=== PATIENT | female | born 1940 | race Caucasian/White ===

== ENCOUNTER → 2024-06-26 | Outpatient (CLI) | payer MEDICARE, OTHER, SELFPAY ==
[2024-06-26 08:31] LABS: Basophils # (Auto) 0.1 Thou/mm3 (0.0-0.2); Basophils % (Auto) 1 % (0-2.5); Eosinophils # (Auto) 0.3 Thou/mm3 (0.0-0.5); Eosinophils % (Auto) 6 % (0-10); Hematocrit 42.8 % (36.0-46.0); Hemoglobin 14.1 g/dL (12.0-16.0); Immature Granulocytes % (Auto) 0 % (0-0); Immature Granulocytes Auto 0.01 Thou/mm3 (0.00-0.00); Lymphocytes # (Auto) 1.9 Thou/mm3 (1.0-4.8); Lymphocytes % (Auto) 34 % (10-50); Mean Corpuscular HGB Conc 32.9 g/dl (31.0-37.0); Mean Corpuscular Hemoglobin 30.8 pg (25.0-35.0); Mean Corpuscular Volume 93 fL (80-100); Monocytes # (Auto) 0.7 Thou/mm3 (0.0-0.8); Monocytes % (Auto) 12 % (0-12); Neutrophils # (Auto) 2.6 Thou/mm3 (1.8-7.7); Neutrophils % (Auto) 46 % (37-80); Nucleated Red Blood Cell % 0 /100 WBC (0); Platelet Count 184 Thou/mm3 (140-440); Red Blood Count 4.58 Miln/mm3 (4.00-5.20); White Blood Count 5.5 Thou/mm3 (3.6-11.0)
[2024-06-26 08:50] LABS: Glucose Estimated Average 111 mg/dL (80-131); Hemoglobin A1C 5.5 % Hgb (4.8-6.0)
[2024-06-26 08:53] LABS: Collection Type, Urine Clean Catch
[2024-06-26 09:15] LABS: Bacteria,Urine Rare; Bilirubin,Urine Negative (Negative); Blood,Urine Trace (Negative); Color,Urine Yellow (Lt Yel-Yel); Culture Indicated,Urine Contaminated; Glucose, Urine Negative (Negative); Hyaline Casts,Urine < 1 /hpf (0-1); Ketones,Urine Negative (Negative); Leukocyte Esterase,Urine Positive (Negative); Nitrite,Urine Negative (Negative); PH,Urine 5.5 (5.0-7.0); Protein,Urine Trace (Neg - Trace); RBC,Urine 16 /hpf (0-3); Specific Gravity,Urine 1.011 (1.001-1.035); Squamous Epithelial Cell,Urine 17 /hpf (0-5); Urobilinogen,Urine Negative mg/dL (0.0-1.0); WBC,Urine 25 /hpf (0-5)
[2024-06-26 09:32] LABS: Clarity,Urine Hazy (Clear/Hazy)
[2024-06-26 18:57] LABS: Alanine Aminotransferase 17 U/L (10-49); Albumin, Serum 4.5 gm/dL (3.4-4.8); Albumin/Globulin Ratio 1.8 (1.2-2.2); Alkaline Phosphatase 91 U/L (46-116); Anion Gap 10 (7-16); Aspartate Amino Transferase 29 U/L (0-34); BUN/Creatinine Ratio 18 Ratio (12-20); Bilirubin,Total 0.8 mg/dL (0.3-1.2); Blood Urea Nitrogen 16 mg/dL (9-23); Calcium 10.2 mg/dL (8.3-10.6); Calcium (Corrected) 10.2 mg/dL (8.5-10.1); Carbon Dioxide 28.6 mMol/L (20.0-31.0); Chloride 100 mMol/L (98-107); Creatinine (Component) 0.9 mg/dL (0.6-1.3); Free T4 (Free Thyroxine) 1.64 ng/dL (0.89-1.76); Globulin 2.5 gm/dL (2.3-3.5); Glucose 96 mg/dL (74-106); Magnesium 1.9 mg/dL (1.6-2.6); Osmolality,Calculated 278 (275-295); Potassium 3.8 mMol/L (3.4-5.1); Sodium 139 mMol/L (136-145); Uric Acid 4.8 mg/dL (3.1-7.8); eGFR > 60 See Note
[2024-06-30 07:04] LABS: Vitamin D, 25-OH, D2 <4 ng/mL; Vitamin D, 25-OH, D3 50 ng/mL; Vitamin D, 25-OH, Total 50 ng/mL (30-100)
== END | disposition home or self-care (01) ==
LOC: COPL 07:47
PROVIDERS: PCP Internal Medicine; Referring Provider Internal Medicine; Visit Provider Internal Medicine
DX: I10 Essential (primary) hypertension (principal); R73.01 Impaired fasting glucose; M85.859 Other specified disorders of bone density and structure, unspecified thigh; R53.83 Other fatigue; M10.9 Gout, unspecified; K21.9 Gastro-esophageal reflux disease without esophagitis
CPT/HCPCS: 36415; 80053; 81001; 82306; 83036; 83735; 84439; 84443; 84550; 85025

== ENCOUNTER 2024-08-10 14:08 | Emergency (ER) | payer MEDICARE, OTHER, SELFPAY ==
[2024-08-10 14:19] VITALS: BP 137/75; PULSE 105; RESP 16; TEMP 36.7; O2SAT 95; BMI 23.6
--- NOTE | 2024-08-10 15:04 | PD.EDFMALE ---
ED Female Urogenital RME/HPI General Chief complaint: Urogenital-Female Stated complaint: VAGINAL SWELLING AND SORENESS Time Seen by Provider: 08/10/24 14:26 Source: patient Arrival date/time: 08/10/24 14:08 83-year-old female with no known medical history presents to the emergency room with a chief complaint of tenderness and swelling to the right side of her vagina and dysuria x 1 week Mode of arrival: ambulatory Limitations: no limitations Related Data Home Medications ?Medication ?Instructions ?Recorded ?Confirmed amlodipine 5 mg tablet 1 tab PO QDAY 02/10/22 02/10/22 triamterene 37.5 1 tab PO QDAY 02/10/22 02/10/22 mg-hydrochlorothiazide 25 mg tablet venlafaxine 37.5 mg 1 cap PO QDAY 02/10/22 02/10/22 capsule,extended release 24 hr Previous Rx's ?Medication ?Instructions ?Recorded potassium chloride 10 mEq 10 meq PO QDAY #10 tabs 02/10/22 tablet,extended release potassium chloride 20 mEq 20 meq PO QDAY #10 tabs 12/17/22 tablet,extended release nitrofurantoin 100 mg PO Q12H 5 days #10 caps 08/10/24 monohydrate/macrocrystals 100 mg capsule (Macrobid) phenazopyridine 200 mg tablet 200 mg PO TID 6 doses #6 tabs 08/10/24 (Pyridium) Allergies Allergy/AdvReac Type Severity Reaction Status Date / Time Penicillins Allergy Severe Rash Verified 08/10/24 14:14 Review of Systems Review of Systems Systems Reviewed: All systems reviewed, normal except as documented Constitutional Constitutional: Reports system reviewed and no additional complaints, except as documented, Denies fatigue, Denies fever(s), Denies headache(s) and Denies weakness Eyes Eyes: Reports system reviewed and no additional complaints, except as documented, Denies blurry vision and Denies change in vision ENT Ears, Nose, Mouth, and Throat: Reports system reviewed and no additional complaints, except as documented, Denies otalgia, Denies headache(s), Denies nasal congestion, Denies throat swelling and Denies vertigo Cardiovascular Cardiovascular: Reports system reviewed and no additional complaints, except as documented, Denies chest pain, Denies dyspnea and Denies dyspnea on exertion Respiratory Respiratory: Reports system reviewed and no additional complaints, except as documented, Denies chest congestion, Denies cough, Denies dyspnea, Denies dyspnea on exertion and Denies wheezing Gastrointestinal Gastrointestinal: Reports system reviewed and no additional complaints, except as documented, Denies abdominal pain, Denies cramping, Denies nausea and Denies vomiting Genitourinary Genitourinary: Reports system reviewed and no additional complaints, except as documented, Reports dysuria, Reports pelvic pain, Denies vaginal discharge and Denies vaginal dryness Musculoskeletal Musculoskeletal: Reports system reviewed and no additional complaints, except as documented and Denies back pain Integumentary/Breasts Skin/Breast: Reports system reviewed and no additional complaints, except as documented and Denies wounds Neurologic Neurologic: Reports system reviewed and no additional complaints, except as documented, Denies confusion, Denies headache(s), Denies lack of coordination, Denies vertigo and Denies weakness Psychiatric Psychiatric: Reports system reviewed and no additional complaints, except as documented, Denies anxiety, Denies confusion, Denies depression, Denies paranoia, Denies suicidal ideation and Denies tactile hallucinations Endocrine Endocrine: Reports system reviewed and no additional complaints, except as documented and Denies fatigue Hematologic/Lymphatic Hematologic/Lymphatic: Reports system reviewed and no additional complaints, except as documented and Denies lymphadenopathy Allergic/Immunologic Allergic/Immunologic: Reports system reviewed and no additional complaints, except as documented, Denies throat swelling, Denies urticaria and Denies wheezing ED Exam General Limitations: Present no limitations Course Quality Measures none Orders Category Date Time Status UA, C/S IF [Urinalysis, C/S if Indicated] Stat Lab 08/10/24 14:55 Completed Vital Signs Vital signs: Vital Signs Temperature 98.0 F 08/10/24 14:19 Pulse Rate 105 H 08/10/24 14:19 Respiratory Rate 16 08/10/24 14:19 Blood Pressure 137/75 H 08/10/24 14:19 Pulse Oximetry (%) 95 08/10/24 14:19 Oxygen Delivery Method Room Air 08/10/24 14:19 O2 saturation 95% within normal limits Urogenital - Female MDM Narrative MDM Narrative:: 83-year-old female with no known medical history presents to the emergency room with a chief complaint of tenderness and swelling to the right side of her vagina and dysuria x 1 week Patient is hemodynamically stable and in no apparent distress Physical examination shows some minor swelling to the right vulva. There is no Paulina. No discharge no foul odor. Urinalysis shows a urinary tract infection. Antibiotics were sent to the patient's pharmacy patient was discharged and educated to follow-up with her primary care provider and return to the emergency room for any evidence of worsening signs or symptoms Patient data External records reviewed:: [facility] previous records Clinical information provided by:: patient Social determinants that could affect healthcare access:: none Patient has the following chronic illnesses:: No chronic illness How is presenting disease/condition affected by chronic disease/condition?: no chronic disease Evaluation data The following diagnostics were reviewed and interpreted by me:: lab results and radiology exam(s) Lab and/or radiology exams considered but not ordered:: Labs and radiology exams considered and ordered Interpretation Summary: N/A Medications / Prescriptions Medications or Prescriptions considered but not ordered:: Medication given Medication administrations:: Rx given Consultations Consultation(s) initiated? (list below): No Diagnosis Urogenital Female Differential Diagnosis: urinary tract infection, bacterial vaginosis, vaginitis, cyst of Bartholin's gland and cystitis Most likely diagnosis given after review of the tests above:: Urinary tract infection Admission Indicated Admission indicated?: not indicated Admission Request Was there a request for admission?: No Disposition Plan Disposition Plan: Discharge Discharge Attestation Discharge Attestation: The patient and all family members were given an opportunity to ask questions and understood the discharge instructions. Discharge instructions specifically effects, indications for sooner follow up or return to the emergency department, and the expected course of current diagnosis. Patient condition: Stable Discharge Plan Plan Patient Disposition: HOME (Self Care) Disposition Comment: Stable Prescriptions/Referrals Prescriptions/Med Rec: New nitrofurantoin monohyd/m-cryst [Macrobid] 100 mg capsule 100 mg PO Q12H 5 Days Qty: 10 0RF Rx Instructions: must administer with a meal/food phenazopyridine [Pyridium] 200 mg tablet 200 mg PO TID Qty: 6 0RF No Action amlodipine 5 mg tablet 1 tab PO QDAY venlafaxine 37.5 mg capsule,extended release 24hr 1 cap PO QDAY triamterene-hydrochlorothiazid 37.5-25 mg tablet 1 tab PO QDAY potassium chloride 10 mEq tablet extended release 10 meq PO QDAY Qty: 10 0RF potassium chloride 20 mEq tablet extended release 20 meq PO QDAY Qty: 10 0RF Problem List Clinical Impression: Urinary tract infection Patient/Caregiver Discharge Instructions Education Materials: ED CYSTITIS Female Adult Additional Instructions: Please follow-up with your primary care provider in the next 24 to 48 hours. Your urinalysis showed a urinary tract infection. Antibiotics are sent to your pharmacy please pick them up and take them as indicated. For any evidence of worsening signs or symptoms please return to the emergency room immediately Print Language: Czech Stand Alone Forms: [facility] Award Info., Patient Portal Info Letter PA/TOURIST CAMP ATTENDANT Supervising Physician PA/TOURIST CAMP ATTENDANT Supervising Physician: Dr. Powell
[2024-08-10 15:19] LABS: Collection Type, Urine Clean Catch
[2024-08-10 15:41] LABS: Bacteria,Urine Rare; Bilirubin,Urine Negative (Negative); Blood,Urine Trace (Negative); Color,Urine Yellow (Lt Yel-Yel); Culture Indicated,Urine Contaminated; Glucose, Urine Negative (Negative); Hyaline Casts,Urine < 1 /hpf (0-1); Ketones,Urine Negative (Negative); Leukocyte Esterase,Urine Positive (Negative); Nitrite,Urine Negative (Negative); PH,Urine 5.5 (5.0-7.0); Protein,Urine 1+ (Neg - Trace); RBC,Urine 27 /hpf (0-3); Squamous Epithelial Cell,Urine 64 /hpf (0-5); WBC,Urine 251 /hpf (0-5)
[2024-08-10 16:04] LABS: Clarity,Urine Hazy (Clear/Hazy)
== END 2024-08-10 17:11 | disposition home or self-care (01) ==
LOC: SERX 16:36
PROVIDERS: Nurse Practitioner Family; Emergency Provider Emergency Medicine; PCP Family Medicine
DX: N39.0 Urinary tract infection, site not specified (principal)
CPT/HCPCS: 81001; 99283

== ENCOUNTER → 2024-10-10 | Outpatient (CLI) | payer MEDICARE, OTHER, SELFPAY ==
--- NOTE | 2024-10-10 | XR_ITS ---
Examination: PA lateral chest 2 views TECHNIQUE: Upright PA lateral chest 2 views Exam date and time: October 10, 2024 1159 hours INDICATIONS: Weight loss this month FINDINGS: Normal heart size Lungs are clear. Moderate osteopenia IMPRESSION: No active disease
[2024-10-10 11:50] LABS: Basophils # (Auto) 0.1 Thou/mm3 (0.0-0.2); Basophils % (Auto) 2 % (0-2.5); Eosinophils # (Auto) 0.2 Thou/mm3 (0.0-0.5); Eosinophils % (Auto) 5 % (0-10); Hematocrit 40.4 % (36.0-46.0); Hemoglobin 13.1 g/dL (12.0-16.0); Immature Granulocytes % (Auto) 0 % (0-0); Immature Granulocytes Auto 0.01 Thou/mm3 (0.00-0.00); Lymphocytes # (Auto) 1.2 Thou/mm3 (1.0-4.8); Lymphocytes % (Auto) 29 % (10-50); Mean Corpuscular HGB Conc 32.4 g/dl (31.0-37.0); Mean Corpuscular Hemoglobin 31.4 pg (25.0-35.0); Mean Corpuscular Volume 97 fL (80-100); Monocytes # (Auto) 0.6 Thou/mm3 (0.0-0.8); Monocytes % (Auto) 13 % (0-12); Neutrophils # (Auto) 2.2 Thou/mm3 (1.8-7.7); Neutrophils % (Auto) 51 % (37-80); Nucleated Red Blood Cell % 0 /100 WBC (0); Platelet Count 159 Thou/mm3 (140-440); RDW Standard Deviation 50.5 fL (36.4-46.3); Red Blood Count 4.17 Miln/mm3 (4.00-5.20); White Blood Count 4.2 Thou/mm3 (3.6-11.0)
[2024-10-10 12:03] LABS: Glucose Estimated Average 108 mg/dL (80-131); Hemoglobin A1C 5.4 % Hgb (4.8-6.0)
[2024-10-10 12:13] LABS: Vitamin B12 344 pg/mL (211-911); Vitamin D 25 Hydroxy Total 75.6 ng/mL (7.3-40.2)
[2024-10-10 12:46] LABS: Alanine Aminotransferase 13 U/L (10-49); Albumin, Serum 4.4 gm/dL (3.4-4.8); Albumin/Globulin Ratio 1.6 (1.2-2.2); Alkaline Phosphatase 89 U/L (46-116); Anion Gap 6 (7-16); Aspartate Amino Transferase 31 U/L (0-34); BUN/Creatinine Ratio 16 Ratio (12-20); Bilirubin,Total 0.9 mg/dL (0.3-1.2); Blood Urea Nitrogen 13 mg/dL (9-23); Calcium 9.7 mg/dL (8.3-10.6); Calcium (Corrected) 9.7 mg/dL (8.5-10.1); Carbon Dioxide 29.8 mMol/L (20.0-31.0); Chloride 101 mMol/L (98-107); Creatinine (Component) 0.8 mg/dL (0.6-1.3); Globulin 2.8 gm/dL (2.3-3.5); Glucose 98 mg/dL (74-106); Osmolality,Calculated 273 (275-295); Potassium 3.9 mMol/L (3.4-5.1); Sodium 137 mMol/L (136-145); Thyroid Stimulating Hormone 1.35 uIU/mL (0.55-4.78); Total Protein 7.2 gm/dL (5.7-8.2); eGFR > 60 See Note
[2024-10-10 13:01] LABS: Cardiac Risk Estimate 2.8 RATIO (3.7-5.6); Cholesterol 195 mg/dL (132-200); HDL Cholesterol 69 mg/dL (40-60); LDL Cholesterol,Calculated 113 mg/dL (0-130); Triglycerides 66 mg/dL (30-150); Uric Acid 4.2 mg/dL (3.1-7.8)
== END | disposition home or self-care (01) ==
DX: R63.4 Abnormal weight loss (principal); Z00.00 Encounter for general adult medical examination without abnormal findings; Z13.6 Encounter for screening for cardiovascular disorders; Z87.39 Personal history of other diseases of the musculoskeletal system and connective tissue; Z68.23 Body mass index [BMI] 23.0-23.9, adult
CPT/HCPCS: 36415; 71046; 80053; 80061; 82306; 82607; 83036; 84443; 84550; 85025

== ENCOUNTER 2025-03-24 08:54 | Emergency (ER) | payer MEDICARE, OTHER, SELFPAY ==
[2025-03-24] VITALS (8 sets, daily range): BP systolic 131–175; BP diastolic 66–104; PULSE 61–100; RESP 14–18; TEMP 36.5–36.6; O2SAT 97–100; BMI 22.3
--- NOTE | 2025-03-24 09:44 | PD.EDADULT ---
ED General RME/HPI General Chief complaint: Dizziness Stated complaint: DIZZINESS Time Seen by Provider: 03/24/25 09:44 Arrival date/time: 03/24/25 08:54 RME / HPI RME / HPI narrative: Alisha is a 84 y/o female with PMHx HTN and macular degeneration who comes in for an evaluation of weakness, onset this morning, has had the symptoms before, with no associated fall or presyncope, or no associated other symptoms including nausea or vomiting or syncope. Patient reports she has had the symptoms before in the past and it has resolved on its own. States she has been evaluated at the hospital for similar types of symptoms as well. She denies any recent sick contacts, or recent travel. She says she also had to urinate 4 times today. Denies any chest pain, shortness of breath, numbness, tingling, nausea, vomiting. She says she did not hit her head or fall. She lately has been dealing with being a as she is a 2 times. She expresses some sadness, however no suicidal ideation. No other complaints at this time. Does not smoke, has a beer seldomly, no history of oral or IV drug use. 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 Related Data Home Medications ?Medication ?Instructions ?Recorded ?Confirmed amlodipine 5 mg tablet 1 tab PO QDAY 02/10/22 02/10/22 triamterene 37.5 1 tab PO QDAY 02/10/22 02/10/22 mg-hydrochlorothiazide 25 mg tablet venlafaxine 37.5 mg 1 cap PO QDAY 02/10/22 02/10/22 capsule,extended release 24 hr Previous Rx's ?Medication ?Instructions ?Recorded potassium chloride 10 mEq 10 meq PO QDAY #10 tabs 02/10/22 tablet,extended release potassium chloride 20 mEq 20 meq PO QDAY #10 tabs 12/17/22 tablet,extended release phenazopyridine 200 mg tablet 200 mg PO TID 6 doses #6 tabs 08/10/24 (Pyridium) meclizine 25 mg tablet 25 mg PO BID PRN dizziness 2 weeks 03/24/25 #14 tabs Allergies Allergy/AdvReac Type Severity Reaction Status Date / Time Penicillins Allergy Severe Rash Verified 08/10/24 14:14 Review of Systems Review of Systems Narrative Review of Systems: 12 point ROS reviewed and is otherwise negative unless stated directly in the HPI ED Exam Narrative Physical exam: General: AAOx3, NAD, elderly woman HEENT: Moist mucous membranes, conjunctiva clear, EOMI, PERRLA, eyes seem a bit pin-point, partially blind Cardiovascular: S1, S2, radial pulses +2 bilat, RRR Pulmonary: CTAB bilat no cough, no wheezing GI: No tenderness to light or deep palpitation, no guarding, rigidity, rebound tenderness or distension Extremities: No presence of trace or pitting edema in lower extremities bilaterally, dorsalis pedis pulses +2 bilaterally Neuro: AAOx3, no focal motor or sensory deficits in the UE or LE bilat Psych: A bit sad, however no SI Course Quality Measures none Orders Category Date Time Status Bedside COVID-19 Antigen Test NOW Care 03/24/25 10:07 Active EKG (ED ONLY) *Do not use* NOW Care 03/24/25 10:07 Completed Insert IV NOW Care 03/24/25 10:07 Active Orthostatic Vitals X1 Care 03/24/25 10:[address] head/brain wo con Stat Exams 03/24/25 10:15 Completed EKG (ED Only) Stat Exams 03/24/25 10:07 Draft CBC Stat Lab 03/24/25 10:20 Completed CMP [Comprehensive Metabolic Panel] Stat Lab 03/24/25 10:20 Completed Drug Screen,Urine Stat Lab 03/24/25 10:40 Completed Influenza A & B Rapid Panel Stat Lab 03/24/25 12:00 Completed Lactic Acid [Lactate (Lactic Acid)] Stat Lab 03/24/25 10:20 Completed Mag [Magnesium] Stat Lab 03/24/25 10:20 Completed Phosphorous Stat Lab 03/24/25 10:20 Completed TSH [Thyroid Stimulating Hormone] Stat Lab 03/24/25 10:20 Completed Troponin I Stat Lab 03/24/25 10:20 Completed Urinalysis, C/S if Indicated Stat Lab 03/24/25 10:40 Completed Meclizine HCl [Antivert] Med 03/24/25 14:58 Discontinued 25 mg PO X1 ONE Morphine* Inj Med 03/24/25 14:32 Discontinued 4 mg IVP X1 ONE Ondansetron Inj [Zofran Inj] Med 03/24/25 14:58 Discontinued 4 mg IVP X1 ONE Scopolamine [Transderm-Scop Patch] Med 03/24/25 14:32 Discontinued 1 mg TOP X1 ONE Sodium Chloride 0.9% 500 ml [Ns] 500 ml Med 03/24/25 10:08 Discontinued IV 999 mls/hr Sodium Chloride 0.9% 500 ml [Ns] 500 ml Med 03/24/25 14:33 Discontinued IV 999 mls/hr Vital Signs Vital signs: Vital Signs Temperature 97.8 F 03/24/25 09:14 Pulse Rate 77 03/24/25 09:14 Respiratory Rate 16 03/24/25 09:14 Blood Pressure 154/76 H 03/24/25 09:14 Pulse Oximetry (%) 100 03/24/25 09:14 Oxygen Delivery Method Room Air 03/24/25 09:14 Discharge Plan Plan Patient Disposition: HOME (Self Care) Prescriptions/Referrals Prescriptions/Med Rec: New meclizine 25 mg tablet 25 mg PO BID PRN (Reason: dizziness) 14 Days Qty: 14 0RF Rx Instructions: Take one tablet by mouth up to twice a day as needed for dizziness No Action amlodipine 5 mg tablet 1 tab PO QDAY venlafaxine 37.5 mg capsule,extended release 24hr 1 cap PO QDAY triamterene-hydrochlorothiazid 37.5-25 mg tablet 1 tab PO QDAY potassium chloride 10 mEq tablet extended release 10 meq PO QDAY Qty: 10 0RF potassium chloride 20 mEq tablet extended release 20 meq PO QDAY Qty: 10 0RF phenazopyridine [Pyridium] 200 mg tablet 200 mg PO TID Qty: 6 0RF Referrals: No Primary/Family,Physician [Primary Care Provider] - In 1 week Problem List Clinical Impression: Benign paroxysmal positional vertigo Patient/Caregiver Discharge Instructions Discharge Activity: activity as tolerated Additional Instructions: Discharge instructions Follow-up with your PCP within 1 week We are prescribing you meclizine, take as prescribed Follow-up with your primary care doctor for further evaluation of dizziness, consider ENT or certified procedural coder Consider ENT referral for further evaluation of vertigo Make sure to get off bed or surfaces slowly with your feet first and then use your hands and arms to get upright Continue taking her medicines as prescribed Return to ED if your symptoms worsen or return Print Language: Tanzanian Stand Alone Forms: Odalis Award Info., Patient Portal Info Letter MDM Narrative MDM hospital course (for use when minimal MDM required): 1010: Basic labs including electrolytes, TSH, EKG, head CT. Will order orthstatic vitals. 500 cc bolus. Ordered urinalysis. 1500: Head CT within normal limits. Orthostatic blood pressures within normal limits. Will give patient Zofran and meclizine for nausea and dizziness. If patient continues to improve, anticipate discharge later. 1648: Patient's symptoms have improved in addition to the dizziness. Patient will need to follow-up with her primary care doctor for further workup of dizziness. Will prescribe meclizine outpatient as well. Medication Administration(s) Medication Administration History Discontinued Medications Sodium Chloride (Ns) 500 mls @ 999 mls/hr IV .Q31M ONE Stop: 03/24/25 10:38 Last Infusion: 03/24/25 10:44 Dose: Infused Documented By: Admin: 03/24/25 10:13 Dose: 999 mls/hr Documented By: ROLAND Sodium Chloride (Ns) 500 mls @ 999 mls/hr IV .Q31M ONE Stop: 03/24/25 15:03 Meclizine HCl (Meclizine Hcl 25 Mg Tablet) 25 mg PO X1 ONE Stop: 03/24/25 14:59 Last Admin: 03/24/25 15:03 Dose: 25 mg Documented By: ROLAND Morphine Sulfate (Morphine Sulf Inj 4 Mg/Ml Vial) 4 mg IVP X1 ONE Stop: 03/24/25 14:33 Last Admin: 03/24/25 14:54 Dose: Not Given Documented By: ROLAND Non-Admin Reason: Cancelled by Provider Ondansetron HCl (Ondansetron Inj 2 Mg/Ml Inj 2 Ml) 4 mg IVP X1 ONE; Protocol Stop: 03/24/25 14:59 Last Admin: 03/24/25 15:03 Dose: 4 mg Documented By: ROLAND Scopolamine (Scopolamine 1 Mg Tdsy) 1 mg TOP X1 ONE Stop: 03/24/25 14:33 Last Admin: 03/24/25 14:54 Dose: Not Given Documented By: ROLAND Non-Admin Reason: Cancelled by Provider Diagnosis Diagnoses ruled out and/or further discussions: Weakness, dehydration, intracranial bleed, orthostatic hypotension
--- NOTE | 2025-03-24 10:07 | EKG_ITS ---
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
[2025-03-24] MEDS: SODIUM CHLORIDE 0.9% 500 ML 500 ML 999 ML IV (10:13)
--- NOTE | 2025-03-24 10:15 | XR_ITS ---
Examination: CT brain head without contrast. 2-D sagittal coronal reconstructions Date and time of exam: March 24, 2025, 10:55 a.m. INDICATIONS: Dizziness today CTDI: vol (mGy): 48.4 DLP: (mGycm): 1002 Technique: Multiple CT axial sections of the brain have been obtained, 5 mm slice thickness. Contrast has not been administered. 2-D sagittal, coronal reconstructions have been obtained Low dose protocols were performed. One or more of the following dose reduction techniques were used; automated exposure control, adjustment of the mA and/or KV according to patient size, use of iterative reconstruction technique. Findings: No significant ventricular enlargement. Intra-axial or extra-axial hemorrhage density is not seen. No mass effect or midline shift Basal cisterns are not remarkable. Fourth ventricle is midline. Cranial vault intact. Impression: Negative for acute hemorrhage, mass effect or midline shift Advise clinical correlation and follow-up accordingly
[2025-03-24 10:31] LABS: Lactate (Lactic Acid) 1.8 mMol/L (0.4-2.0)
[2025-03-24 10:35] LABS: Basophils # (Auto) 0.0 Thou/mm3 (0.0-0.2); Basophils % (Auto) 1 % (0-2.5); Eosinophils # (Auto) 0.3 Thou/mm3 (0.0-0.5); Eosinophils % (Auto) 7 % (0-10); Hematocrit 42.6 % (36.0-46.0); Hemoglobin 13.7 g/dL (12.0-16.0); Immature Granulocytes Auto 0.01 Thou/mm3 (0.00-0.00); Lymphocytes # (Auto) 1.2 Thou/mm3 (1.0-4.8); Lymphocytes % (Auto) 29 % (10-50); Mean Corpuscular HGB Conc 32.2 g/dl (31.0-37.0); Mean Corpuscular Hemoglobin 30.6 pg (25.0-35.0); Mean Corpuscular Volume 95 fL (80-100); Monocytes # (Auto) 0.5 Thou/mm3 (0.0-0.8); Monocytes % (Auto) 13 % (0-12); Neutrophils # (Auto) 2.1 Thou/mm3 (1.8-7.7); Neutrophils % (Auto) 50 % (37-80); Nucleated Red Blood Cell # 0.00 Thou/mm3 (0.00-0.00); Nucleated Red Blood Cell % 0 /100 WBC (0); Platelet Count 123 Thou/mm3 (140-440); RDW Standard Deviation 47.9 fL (36.4-46.3); Red Blood Count 4.47 Miln/mm3 (4.00-5.20); White Blood Count 4.2 Thou/mm3 (3.6-11.0)
[2025-03-24 11:00] LABS: Collection Type, Urine Catheter; WBC,Urine 0 /hpf (0-5)
[2025-03-24 11:02] LABS: Alanine Aminotransferase 21 U/L (10-49); Albumin, Serum 4.6 gm/dL (3.4-4.8); Albumin/Globulin Ratio 1.4 (1.2-2.2); Alkaline Phosphatase 94 U/L (46-116); Anion Gap 12 (7-16); Aspartate Amino Transferase 42 U/L (0-34); BUN/Creatinine Ratio 16 Ratio (12-20); Bilirubin,Total 0.8 mg/dL (0.3-1.2); Blood Urea Nitrogen 13 mg/dL (9-23); Calcium 10.2 mg/dL (8.3-10.6); Calcium (Corrected) 10.2 mg/dL (8.5-10.1); Carbon Dioxide 25.9 mMol/L (20.0-31.0); Chloride 105 mMol/L (98-107); Creatinine (Component) 0.8 mg/dL (0.6-1.3); Estimated Creatinine Clearance 47.1 mL/min (>60); Globulin 3.3 gm/dL (2.3-3.5); Glucose 96 mg/dL (74-106); Magnesium 2.0 mg/dL (1.6-2.6); Osmolality,Calculated 285 (275-295); Phosphorous 2.7 mg/dL (2.4-5.1); Potassium 4.0 mMol/L (3.4-5.1); Sodium 143 mMol/L (136-145); Thyroid Stimulating Hormone 1.70 uIU/mL (0.55-4.78); Total Protein 7.9 gm/dL (5.7-8.2); Troponin I < 0.020 ng/mL (0.0-0.045); eGFR > 60 See Note
[2025-03-24 11:25] LABS: Amphetamine/Methamp Scrn,U Negative (Negative); Barbiturate Screen,Urine Negative (Negative); Benzodiazepines Screen,Urine Negative (Negative); Benzoylecgonine Screen, Ur Negative (Negative); Fentanyl Screen,Urine Negative (Negative); Opiate Screen,Urine Negative (Negative); THC Screen,Urine Negative (Negative)
[2025-03-24 12:09] LABS: Bacteria,Urine Rare; Bilirubin,Urine Negative (Negative); Blood,Urine Negative (Negative); Clarity,Urine Clear (Clear/Hazy); Color,Urine Colorless (Lt Yel-Yel); Culture Indicated,Urine Not Indicated; Glucose, Urine Negative (Negative); Ketones,Urine Negative (Negative); Leukocyte Esterase,Urine Negative (Negative); Nitrite,Urine Negative (Negative); PH,Urine 7.5 (5.0-7.0); Protein,Urine Trace (Neg - Trace); RBC,Urine 1 /hpf (0-3); Specific Gravity,Urine 1.007 (1.001-1.035); Squamous Epithelial Cell,Urine 1 /hpf (0-5); Urobilinogen,Urine Negative mg/dL (0.0-1.0)
[2025-03-24 14:07] LABS: Influenza A Ag Negative; Influenza B Ag Negative
[2025-03-24] MEDS: ONDANSETRON INJ 2 MG/ML INJ 2 ML 4 MG IVP (15:03)
[2025-03-24] MEDS: MECLIZINE HCL 25 MG TABLET PO (15:03)
== END 2025-03-24 17:31 | disposition home or self-care (01) ==
DX: H81.10 Benign paroxysmal vertigo, unspecified ear (principal); I10 Essential (primary) hypertension
CPT/HCPCS: 36415; 70450; 80053; 80307; 81001; 83605; 83735; 84100; 84443; 84484; 85025; 87502; 87811; 93005; 96361; 96374; 99284; J2405; J7999; A9270

== ENCOUNTER → 2025-03-29 | Outpatient (CLI) | payer MEDICARE, OTHER, SELFPAY ==
--- NOTE | 2025-03-29 12:55 | XR_ITS ---
EXAMINATION: Cervical spine 3 views TECHNIQUE: AP lateral coned AP odontoid cervical spine 3 views Date and time: March 29, 2025, 1301 hours INDICATIONS: Neck pain 3 months FINDINGS: Moderate osteopenia. Satisfactory line mid cervical vertebral bodies. Moderate disc narrowing C5-C6 Advanced degenerative disc disease C6-C7, C7-T1 with posterior osteophyte formation Odontoid intact IMPRESSION: Advanced degenerative disc disease C6-C7, C7-T1
== END | disposition home or self-care (01) ==
PROVIDERS: PCP Internal Medicine
DX: M50.323 Other cervical disc degeneration at C6-C7 level (principal); M50.33 Other cervical disc degeneration, cervicothoracic region
CPT/HCPCS: 72040

== ENCOUNTER → 2025-04-20 | Outpatient (CLI) | payer MEDICARE, OTHER, SELFPAY ==
--- NOTE | 2025-04-20 10:08 | XR_ITS ---
Examination: Foot, left, 3 views Technique: AP, oblique, lateral views foot, 3 views Date and time of exam: April 20, 2025, at 10:32 a.m. INDICATIONS: Diagnosis gout arthropathy, left foot pain months FINDINGS: Severe osteopenia Prominent hallux valgus bunion deformity Moderate to advanced narrowing first metatarsal phalangeal joint No fracture 8 mm plantar bony calcaneal spur IMPRESSION: Severe osteopenia Prominent hallux valgus bunion deformity Moderate to advanced narrowing first metatarsophalangeal joint
== END | disposition home or self-care (01) ==
DX: M85.872 Other specified disorders of bone density and structure, left ankle and foot (principal); M20.12 Hallux valgus (acquired), left foot; M21.612 Bunion of left foot; M25.872 Other specified joint disorders, left ankle and foot
CPT/HCPCS: 73630